=== PATIENT | female | born 1935 | race Caucasian/White ===

== ENCOUNTER 2017-02-03 08:45 | Outpatient (CLI) | payer MEDICARE ==
[~2017-02-03 08:45] MED LIST: AMLODIPINE BES2.5 MG PO; ASPIRIN 81MG TA81 MG PO; CALCARB 600 W/V1 TAB PO; CALCIUM1 TA1 PO; CIPRO 250MG TA250 MG PO; DIFLUCAN150 MG PO; DONEPEZIL 10MG10 MG PO; DONEPEZIL HCL10 MG PO; FOLIC ACID 1MG T1 MG PO; GABAPENTIN300 M1 PO; LEVOTHYROXIN0.112 M1 PO; LISINOPRIL HCTZ1 TAB PO; MACRODANTIN100 MG PO; MAGMTHWSH PO; METHOTREXATE2.5 M1 PO; METOPROLOL25 MG PO; MULTIVITAMIN1 TAB PO; NAMZARIC1 ECC PO; OXYCODONE AND A1 TA4 PO; PERCOCET1 TA1 PO; POTASSIUM GLUC595 MG PO; PRAVACHOL40 M1 PO; PREDNISONE 2.52.5 MG PO; PROTONIX40 MG PO; SYNTHROID 0.0.125 MG PO; VESICARE5 MG PO; VITAMIN D32000 I2 PO; ZESTRIL 10MG TA10 MG PO; [UNRECOGNIZED DRUG - OTHER] PO
[2017-02-03] MEDS ORDERED: PREDNISONE 10MG10 MG PO (08:53)
[2017-02-03] MEDS ORDERED: COQ1050 MG PO (08:53)
[2017-02-03] MEDS ORDERED: METFORMIN500 MG PO (08:54)
[2017-02-03] MEDS ORDERED: MACROBID 100MG100 MG PO (08:54)
[2017-02-03 09:15] VITALS: BP 158/76
== END 2017-02-03 09:30 | disposition home or self-care (01) ==
LOC: COP 08:45
DX: M81.0 Age-related osteoporosis without current pathological fracture (principal)
CPT/HCPCS: J0897

== ENCOUNTER 2017-05-22 18:18 | Emergency (ER) | payer MEDICARE ==
[~2017-05-22] VITALS: Ht 167.6 cm; Wt 55.3 kg
[~2017-05-22 18:18] MED LIST changes: +COQ1050 MG PO; +MACROBID 100MG100 MG PO; +METFORMIN500 MG PO; +PREDNISONE 10MG10 MG PO
[2017-05-22] MEDS ORDERED: NITROFURANTOIN50 MG PO (18:44)
[2017-05-22 19:00] LABS: HEMOGLOBIN 13.7 g/dL (12.2-16.2); LYMPH # 0.9 K/mm3 (0.7-4.5); LYMPH % 7.6 % (10-50.0)
[2017-05-22 19:23] LABS: BUN 21 mg/dL (7-18)
[2017-05-22 19:26] LABS: GFR (ESTIMATED) 43 ML/MIN (59-)
--- OUTSIDE RECORDS SUMMARY | 2017-05-22 19:33 | External Medical Summary Rpt | CCD ---
Author Author , PALAK CID Address Unknown Phone [email or web address] Immunization Name Date Rout CVX Reac Dose Comm Prov Is Faci e tion ent ider Refu lity Give sed n Infl 09-1 Intr 0.5 Hist PD20 No PD20 uenz 4-20 amus mL oric 255 255 a 17 cula al Quad r Info rmat W/Pr ion es - Sour ce Unsp ecif ied PCV1 09-1 Intr 133 0.5 Hist PD20 No PD20 3 4-20 amus mL oric 255 255 17 cula al r Info rmat ion - Sour ce Unsp ecif ied
--- OUTSIDE RECORDS SUMMARY | 2017-05-22 19:33 | External Medical Summary Rpt | CCD ---
Author Author , PALAK CID Address Unknown Phone [email or web address] Immunization Name Date Rout CVX Reac Dose [...]
--- OUTSIDE RECORDS SUMMARY | 2017-05-22 19:33 | External Medical Summary Rpt | CCD ---
Author Author [employer] Organization [employer] Address Unknown Phone Unavailable Purpose Continuity of Care Document - through 2016
--- OUTSIDE RECORDS SUMMARY | 2017-05-22 19:33 | External Medical Summary Rpt | CCD ---
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
--- OUTSIDE RECORDS SUMMARY | 2017-05-22 19:33 | External Medical Summary Rpt | CCD ---
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
--- NOTE | 2017-05-22 20:13 | RADIOLOGY REPORT PS360 ---
CHEST-PORTABLE HISTORY: COUGH, CONGESTION ORDERING PHYSICIAN: Jesenia Vasquez MD PATIENT AGE: 82 years COMPARISON: 11/12/2015 FINDINGS: The cardiomediastinal silhouette and pulmonary vascularity are within normal limits. COPD with chronic changes. Chronic changes are present in both lower lobes and right upper lobe. There is some increased density in right upper lobe at the second interspace which may be related to patchy area of infiltrate. This is adjacent to some chronic pleural-parenchymal changes. No effusion. No acute bony anomalies. IMPRESSION: COPD with chronic changes with patchy infiltrate in the right upper lobe
--- NOTE | 2017-05-22 21:16 | Emergency Room Report ---
History of Present Illness Time Seen by Moo Presenting Problem in Triage Pt arrived:Walked Presenting Problem:COUGH, CONGESTION, RUNNY NOSE THAT BEGAN YESTERDY. FAMILY STATES PT HAS HAD DECREASED APPETITE TODAY AND WEAKER THAN NORMAL Onset of symptoms date/time:05/21/17/ or onset unknown for:MEDICAL HX UNKNOWN Treatment Prior to Arrival: CUTTER GAS Provided by: Sepsis Risk Assessment: Temp: 97.9 B/P: 142/45 MAP: 122 Pulse: 93 Resp: 20 Recent fever? N Clinical Suspician of Infection? N Mental Status: 1 - Regular (Normal Baseline) Sepsis Risk:Possible Sepsis Risk Have you (or family members/close friends) recently traveled outside the [place]? N If Yes, where/when: Have you had exposure to infectious disease within the past month? N TB? Other? Specify: Source patient, RN notes reviewed, family, old records Exam Limitations no limitations Comment pt with cough and congestion over the last 2 days - pt with no fever or rash Cardiac Chest Pain Chest pain indicative of cardiac No Timing/Duration this evening Severity moderate ALLERGIES Coded Allergies: No Known Allergies (11/12/15) Home Medications Active Scripts Pantoprazole Sodium (Protonix) 40 MG PO BID #60 TAB Ref 2 Prov: 07/05/15 Reported Medications FOLIC ACID (Folic Acid) 1 MG PO DAILY Levothyroxine Sodium (Levothyroxine 0.112MG) 0.112 MG PO DAILY Gabapentin 300 MG PO QHS 30 Days MEMANTINE HCL/DONEPEZIL HCL (Namzaric 28 MG-10 MG Capsule) 1 ECC PO DAILY Prednisone (Prednisone 10MG) 10 MG PO DAILY Ubidecarenone (Coq10) 50 MG PO DAILY Metformin HCL (Metformin) 500 MG PO DAILY Amlodipine Besylate 2.5 MG PO DAILY #30 NITROFURANTOIN MACROCRYSTAL (Nitrofurantoin) 50 MG PO DAILY #90 History Medical History General CAD? No Angina: No [place]: No Hypertension? Yes Hyperlipidemia? Yes CHF? No DVT? No PE? No COPD? No Asthma? Yes Anemia? No GERD? No Gastric ulcers? Yes GI Bleed? No Hernia? Yes Thyroid Problems? Yes Hypothyroidism? Yes CVA? No Seizures? No Diabetes? No Renal Insuffiency? No End Stage Renal Disease? No UTI? No Stones? No BPH? No GB Disease: No Nephritic Syndrome? No Asplenia? No Hepatitis? Yes Sickle Cell Disease? No Arthritis? No Migraines? No Cataracts? Yes Glaucoma? No MRSA? No HIV? No TB? No Anxiety? No Depression? No Cancer? No More? 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 Respiratory see HPI, cough, denies shortness of breath, denies wheezing Cardiovascular denies chest pain, denies palpitations, denies syncope Gastrointestinal denies abdominal pain, denies diarrhea, denies vomiting Genitourinary denies: dysuria, frequency, hesitancy, hematuria. Musculoskeletal denies back pain, denies joint pain, denies joint swelling, denies neck pain Skin denies rash Psychiatric/Neurological denies headache, denies seizure Physical Exam Vital Signs Vital Signs Date Time Temp Pulse Resp B/P Pulse O2 O2 Flow FiO2 Ox Delivery Rate 05/22 2008 97.9 93 20 142/45 93 05/22 183 97.9 103 20 186/90 93 - WBC >12,000 or <4,000 or 10% bands? 2 or more SIRS Criteria Met? B/P:142/45 MAP:122 Creatinine >2.0? UA output<0.5ml/kg/hr for 2 hrs? Platelet count >100,000? Lactate >2.0mmol/1? INR >1.2 or PTT > than 60 sec? Evidence of Organ Dysfunction? Provider documented clinical suspician of infection? N Sepsis Criteria Count: 2 Sepsis Risk: Possible Sepsis Risk General Appearance no apparent distress Eye Exam - bilateral eye PERRL, bilateral eye EOMI Ear, Nose, Throat normal ENT inspection Neck supple Respiratory Status No: respiratory distress. Lung Sounds bilateral: lungs clear. 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 No Results/Orders Laboratory Tests 05/22/171847: Lactic Acid 2.5 H 05/22/171839: Sodium 140, Potassium 3.9, Chloride 102, Carbon Dioxide 27, BUN 21 H, Creatinine 1.2 H, Estimated Creat Clear 33 L, Estimated GFR (MDRD) 43 L, Glucose 265 H, Calcium 8.9, Total Bilirubin 0.5, AST 14 L, ALT 14, Alkaline Phosphatase 81, Creatine Kinase 37, CK-MB (CK-2) Rel Index 1.4, CK and CKMB Interp < 0.5, Troponin I < 0.02, Total Protein 6.7, Albumin 3.1 L, Globulin 3.6 H, Albumin/Globulin Ratio 0.9 L, WBC 12.5 H, RBC 4.42, Hgb 13.7, Hct 41.5, MCV 93.8, RDW 13.6, Plt Count 277, MPV 7.3 L, Gran % 84.0 H, Gran # 10.5 H, Lymphocytes % 7.6 L, Monocytes % 7.5, Eosinophils % 0.5, Basophils % 0.4, Lymphocytes # 0.9, Monocytes # 0.9, Eosinophils # 0.1, Basophils # 0.1, PUBS MCHC 33.0, MCH 31.0 Current Medication Orders Sig/Vinay Start time Last Medication Dose Route Stop Time Status Admin Ceftriaxone Sodium 1 GM ONCE ONE 05/22 2130 AC Sodium Chloride 50 ML IV 05/22 2159 Methylprednisolone 125 MG ONCE ONE 05/22 2130 AC Sodium Succinate IV 05/22 2131 Sodium Chloride 10 ML PRN PRN 05/22 1900 AC IV 05/23 1847 Orders Procedure Date/time Status LACTIC ACID FOLLOW UP 05/22 1955 Active ELECTROCARDIOGRAM REQUEST 05/22 1848 Active IV SALINE LOCK 05/22 1848 Active CULTURE, BLOOD 05/22 1848 Active LACTIC ACID 05/22 1848 Complete CBC WITH AUTO DIFF 05/22 1848 Complete CARDIAC ENZYMES 05/22 1848 Complete CHEM 12 PROFILE 05/22 1848 Complete CM/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 ST/[facility]ave chgs XRAY/CT/US XRAY/CT/US XRAY chest XR interpretation by discussed w/radiologist Xray Results abnormal (rt cap) Departure Departure Time of Disposition 2124 Disposition DC Home or Self Care(routine) Clinical Impression Primary Impression: CAP (community acquired pneumonia) Qualifiers: Laterality: right Lung location: upper lobe of lung Qualified Code: J18.1 - Lobar pneumonia, unspecified organism Condition STABLE Referrals Trent Poole MD Patient Instructions DI for Cough -- Adult Additional Instructions has appt in am with dr poole Discharge Counseling Counseled pt/family regarding diagnosis, test results, medications/RX, follow up needs ED Critical Care Critical Care No at 212
[2017-05-22 21:46] VITALS: BP 140/81
== END 2017-05-22 21:46 | disposition home or self-care (01) ==
LOC: ER 18:18
PROVIDERS: Emergency Medicine
DX: J18.1 Lobar pneumonia, unspecified organism (principal); J45.909 Unspecified asthma, uncomplicated; E03.9 Hypothyroidism, unspecified; E78.5 Hyperlipidemia, unspecified; I10 Essential (primary) hypertension